=== PATIENT | female | born 1985 | race Two or more races ===

== ENCOUNTER 2024-07-25 16:43 | Emergency (ER) | payer OTHER ==
[2024-07-25 16:50] VITALS: BP 186/149; PULSE 110; RESP 18; TEMP 99
--- NOTE | 2024-07-25 17:11 | ED ---
Dizziness HPI - General Chief Complaint: Dizziness Stated Complaint: Hypertension Time Seen by Provider: 07/25/24 17:01 Source: patient, RN notes reviewed Mode of arrival: ambulatory Limitations: no limitations - History of Present Illness Initial Comments: Quick [id number] female history of hypertension, anxiety, and agoraphobia presents to the emergency department chief complaint of hypertension. States that over the past few days she has had elevated blood pressures and symptoms of dizziness and headaches. States that she has been feeling mildly confused as well. She has taken her amlodipine and lisinopril as prescribed. She denies chest pain, heart palpitations. Denies history of diabetes, [place], high cholesterol - Related Data Allergies Allergy/AdvReac Type Severity Reaction Status Date / Time morphine Allergy Anaphylaxis Verified 07/25/24 16:50 Review of Systems ROS Statement: Those systems with pertinent positive or pertinent negative responses have been documented in the HPI. ROS Other: All systems not noted in ROS Statement are negative. Past Medical History Past Medical History: Hypertension Past Surgical History: No Surgical Hx Reported Past Psychological History: Anxiety General Exam - General Exam Comments Initial Comments: Visual Physical Exam Vital signs reviewed General: Well-appearing, nontoxic, no acute distress. Head: Normocephalic, atraumatic Eyes: PERRLA, EOMI ENT: Airway patent Chest: Nonlabored breathing Skin: No visual rash, normal skin tone Neuro: Alert and oriented 3 Musculoskeletal: No gross abnormalities Limitations: no limitations Course Vital Signs 07/25/24 16:47 Temperature 99 F Pulse Rate 110 H Respiratory 18 Rate Blood Pressure 186/149 O2 Sat by Pulse 97 Oximetry Medical Decision Making - Medical Decision Making I completed the quick note portion of this chart signed Negra Serrano PA-C Comprehensive medical decision making unable to be obtained due to patient leaving AGAINST MEDICAL ADVICE. Disposition Clinical Impression: Left against medical advice Disposition: LEFT AGAINST MEDICAL ADVICE Condition: Undetermined Is patient prescribed a controlled substance at d/c from ED?: No Referrals: None,Stated [Primary Care Provider] - 1-2 days
== END 2024-07-25 18:31 | disposition left against medical advice (07) ==
LOC: EC 16:43
CPT/HCPCS: 93005; 99283

== ENCOUNTER 2025-02-15 15:25 | Emergency (ER) | payer OTHER ==
[2025-02-15] MEDS: LORazepam 1 MG/0.5 ML VIAL IV STA (16:03)
[2025-02-15 16:04] LABS: Basophils # (A) 0.05 10*3/uL (0.00-0.10); Basophils % (A) 0.4 %; Eosinophils # (A) 0.16 10*3/uL (0.04-0.35); Eosinophils % (A) 1.4 %; HCT 47.6 % (37.2-46.3); HGB 16.2 g/dL (12.0-15.0); Lymphocytes # (A) 4.71 10*3/uL (0.90-5.00); Lymphocytes % (A) 41.6 %; MCH 30.3 pg (27.0-32.0); Mean Platelet Volume 9.2 fL (9.5-12.2); Monocytes # (A) 0.57 10*3/uL (0.20-1.00); Neutrophils # (A) 5.78 10*3/uL (1.80-7.70); Neutrophils % (A) 51.2 %; Platelet Count 363 10*3/uL (140-440); RBC 5.35 10*6/uL (4.10-5.20); RDW 12.8 % (11.5-14.5); WBC 11.31 10*3/uL (4.50-10.00)
--- NOTE | 2025-02-15 16:05 | ED ---
Chest Pain HPI - General Chief Complaint: Chest Pain Stated Complaint: high blood pressure Time Seen by Provider: 02/15/25 15:44 Source: patient Mode of arrival: ambulatory Limitations: no limitations - History of Present Illness Initial Comments: Dictation was produced using [employer] dictation software. please excuse any grammatical, word or spelling errors. Chief Complaint: 39-year-old female from urgent care for hypertension History of Present Illness: Patient is a 39-year-old female history of hypertension has been out of her hypertensive medications for several days. She went to the urgent care after her watch told her to her blood pressure was high. They state at the urgent care that her blood pressure was so high that she would be sent to the emergency department. Patient has had a headache for the last 1 to 2 hours. Denies headache being the worst of her life. Patient altered slightly and not a reliable historian. The ROS documented in this emergency department record has been reviewed and confirmed by me. Those systems with pertinent positive or negative responses have been documented in the HPI. All other systems are other negative and/or noncontributory. - Related Data Home Medications Medication Instructions Recorded Confirmed amLODIPine [Norvasc] 10 mg PO DAILY 02/15/25 02/15/25 Previous Rx's Medication Instructions Recorded ALPRAZolam [Xanax] 0.25 mg PO DAILY PRN 3 Days #3 tab 02/15/25 amLODIPine 10 mg PO DAILY 24 Days #24 tab 02/15/25 Allergies Allergy/AdvReac Type Severity Reaction Status Date / Time morphine Allergy Anaphylaxis Verified 02/15/25 17:21 Review of Systems ROS Statement: Those systems with pertinent positive or pertinent negative responses have been documented in the HPI. ROS Other: All systems not noted in ROS Statement are negative. Past Medical History Past Medical History: Hypertension Past Surgical History: No Surgical Hx Reported Past Psychological History: Anxiety Smoking Status: Never smoker Past Alcohol Use History: None Reported Past Drug Use History: None Reported General Exam - General Exam Comments Initial Comments: PHYSICAL EXAM: General Impression: Alert and oriented x3/4, not in acute distress HEENT: Normocephalic atraumatic, extra-ocular movements intact, pupils equal and reactive to light bilaterally, mucous membranes moist. Cardiovascular: Heart regular rate and rhythm Chest: Able to complete full sentences, no retractions, no tachypnea Abdomen: abdomen soft, non-tender, non-distended, no organomegaly Musculoskeletal: Pulses present and equal in all extremities, no peripheral edema Motor: no focal deficits noted Neurological: CN II-XII grossly intact, no focal motor or sensory deficits noted Skin: Intact with no visualized rashes Psych: Normal affect and mood Limitations: no limitations Course Vital Signs 02/15/25 02/15/25 02/15/25 15:38 15:46 15:48 Pulse Rate 115 H 103 H 94 Respiratory 30 H 32 H Rate Blood Pressure 188/150 200/164 212/135 O2 Sat by Pulse 100 100 99 Oximetry 02/15/25 02/15/25 16:44 16:47 Pulse Rate 85 90 Respiratory 24 24 Rate Blood Pressure 200/121 189/107 O2 Sat by Pulse 100 100 Oximetry Chest Pain MDM - MDM My EKG interpretation: Ventricular rate 112, sinus tachycardia,. 124, cures 70, QTc 371. No NM prolongation, no QTC prolongation, diffuse ST depressions with no ST elevation. Overall this EKG is nonspecific Was pt. sent in by a medical professional or institution (, PA, EMBEDDED SOFTWARE ARCHITECT, urgent care, hospital, or longterm...) When possible be specific @ -No Did you speak to anyone other than the patient for history (EMS, parent, family, police, friend...)? What history was obtained from this source @ -No Did you review nursing and triage notes (agree or disagree)? Why? @ -I reviewed and agree with nursing and triage notes Were old charts reviewed (outside hosp., previous admission, EMS record, old EKG, old radiological studies, urgent care reports/EKG's, longterm records)? Report findings @ -No old charts were reviewed Differential Diagnosis (chest pain, altered mental status, abdominal pain women, abdominal pain men, vaginal bleeding, musculoskeletal, weakness, fever, dyspnea, syncope, headache, dizziness, GI bleed, back pain, seizure, CVA, palpatations, mental health)? @ -Anxiety reaction, intracranial bleed, hypertensive emergency EKG interpreted by me (3pts min.). @ -See above X-rays interpreted by me (1pt min.). @ -None done CT interpreted by me (1pt min.). @ -None done U/S interpreted by me (1pt. min.). @ -None done What testing was considered but not performed or refused? (CT, X-rays, U/S, labs)? Why? @ -None What meds were considered but not given or refused? Why? @ -None Was smoking cessation discussed for >3mins.? @ -No Were there social determinants of health that impacted care today? How? (Homelessness, low income, unemployed, alcoholism, drug addiction, transportation, low edu. Level, literacy, decrease access to med. care, penitentiary, rehab)? @ -No Was there de-escalation of care discussed even if they declined (Discuss DNR or withdrawal of care, Hospice)? DNR status @ -No What co-morbidities impacted this encounter? (DM, HTN, Smoking, COPD, CAD, Can cer, CVA, ARF, Chemo, Hep., AIDS, mental health diagnosis, sleep apnea, morbid obesity)? @ -Hypertension Was patient admitted / discharged? Hospital course, mention meds given and route, prescriptions, significant lab abnormalities, going to OR and other pertinent info. @ -39-year-old female with hypertension some of the urgent care she does not have good outpatient follow-up for management of her blood pressure issues. Vital signs shows initial blood pressure 188/150 she states that normally is her baseline blood pressure patient no acute distress she does have some complaints of headache she started 1 to 2 hours prior to arrival. CT brain is negative. Labs are unremarkable. Patient given some anxiolytics with improvement of agitation. Patient is well-appearing at bedside denies any complaints. Given [facility] with [facility]. Patient given refill of amlodipine. Patient discharged. Did you discuss the management of the patient with other professionals (remberto zamorano i.e. , PA, EMBEDDED SOFTWARE ARCHITECT, lab, RT, psych nurse, social services specialist, blending plant operator, teacher, campus safety officer, adult protective caseworker)? Give summary @ -No Was critical care preformed (if so, how long)? @ -No Undiagnosed new problem with uncertain prognosis? @ -No Drug Therapy requiring intensive monitoring for toxicity (Heparin, Nitro, Insulin, Cardizem)? @ -No Were any procedures done? @ -No Diagnosis/symptom? Acute, or Chronic, or Acute on Chronic? Uncomplicated (without systemic symptoms) or Complicated (systemic symptoms)? @ -Hypertension Side effects of treatment? @ -No Exacerbation, Progression, or Severe Exacerbation? @ -No Poses a threat to life or bodily function? How? (Chest pain, [place], [place], pneumonia, PE, COPD, DKA, ARF, appy, cholecystitis, CVA, Diverticulitis, Homicidal, Suicidal, threat to staff... and all critical care pts) @ -No Disposition Clinical Impression: Hypertension Disposition: HOME SELF-CARE Condition: Fair Instructions (If sedation given, give patient instructions): Hypertension (ED) Prescriptions: amLODIPine 10 mg PO DAILY 24 Days #24 tab ALPRAZolam [Xanax] 0.25 mg PO DAILY PRN 3 Days #3 tab PRN Reason: Anxiety Is patient prescribed a controlled substance at d/c from ED?: Yes If prescribed controlled substance>3 days was MAPS reviewed?: Prescribed <3 Days Referrals: [facility] [NON-STAFF] - 1-2 days [facility] [NON-STAFF] - 1-2 days Time of Disposition: 17:16
[2025-02-15] MEDS: SODIUM CHLORIDE 0.9% 1,000 ML IV STA (16:07)
[2025-02-15 16:11] LABS: ALT 25 U/L (4-34); AST 27 U/L (14-36); African American GFR (CKD) 83 (>60 ml/min/1.73 sqM); Albumin 4.9 g/dL (3.5-5.0); Alkaline Phosphatase 63 U/L (38-126); Anion Gap 13 mmol/L; Blood Urea Nitrogen 12 mg/dL (7-17); Calcium 10.2 mg/dL (8.4-10.2); Carbon Dioxide 23 mmol/L (22-30); Chloride 103 mmol/L (98-107); Glucose 103 mg/dL (74-99); Non-African American GFR(CKD) 72 (>60 ml/min/1.73 sqM); Sodium 139 mmol/L (137-145); Total Bilirubin 0.7 mg/dL (0.2-1.3); Total Protein 8.1 g/dL (6.3-8.2)
--- NOTE | 2025-02-15 16:27 | CT ---
EXAMINATION TYPE: CT brain wo con DATE OF EXAM: 02/15/2025 COMPARISON: None CLINICAL INDICATION: Female, 39 years old with history of headache, hypertension; PHH, Hypertension, dizziness, confusion. CT DLP: 1145.4 mGycm Automated exposure control for dose reduction was used. Findings: The ventricles, basal cisterns and sulci over the convexities are within normal limits and there is n o mass effect or shift of midline structures. No abnormal density is seen throughout the brain parenchyma and there is no acute intra or extra-axia l hemorrhage. The posterior fossa including the brainstem, fourth ventricle and cerebellar pontine angles appear no rmal. Intraorbital contents appear normal and symmetric. Visualized paranasal sinuses and mastoid air cells are well aerated. The calvarium is intact. IMPRESSION: No significant abnormality seen. There is no acute bleed or mass effect. [facility], , 02/15/2025 4:25 PM
[2025-02-15 16:44] VITALS: RESP 24
[2025-02-15 16:48] VITALS: PULSE 90
[2025-02-15 17:41] VITALS: BP 174/107
== END 2025-02-15 17:40 | disposition home or self-care (01) ==
LOC: EC 15:25
DX: I10 Essential (primary) hypertension (principal); Z88.5 Allergy status to narcotic agent
CPT/HCPCS: 36415; 93005; 80053; 85025; 70450; 99285; 96374; 96361; J2060